=== PATIENT | female | born 1970 | race Caucasian/White ===

== ENCOUNTER 2024-11-28 14:09 | Observation (INO) | payer BC, MEDICARE ==
[~2024-11-28] VITALS: Ht 157.5 cm; Wt 95.1 kg
[~2024-11-28 14:09] MED LIST: ALPR1TAB7 PO; CHOL500050 PO; CLON2TAB21 PO; DULO60CA64 PO; IPRA3AMP24 IH; LAMO200T10 PO; NITR0.4T SL; OLAN1CAP14 PO; TEMA30CA PO
[2024-11-28 14:51] LABS: BASOPHILS # (AUTO) 0.06 K/uL (0.00-0.20); BASOPHILS % (AUTO) 0.5 % (0.0-5.0); EOSINOPHILS # (AUTO) 0.02 K/uL (0.00-0.70); EOSINOPHILS % (AUTO) 0.2 % (0.0-8.0); IMMATURE GRANULOCYTE ABSOLUTE 0.07 K/uL (0-1); LYMPHOCYTES # (AUTO) 2.9 K/uL (1.0-4.8); LYMPHOCYTES % (AUTO) 26.9 % (21.0-51.0); MEAN CORPUSCULAR HEMOGLOBIN 28.4 pg (27.0-33.0); MEAN CORPUSCULAR HGB CONC 32.9 g/dL (32.0-36.0); MEAN CORPUSCULAR VOLUME 86.2 fL (79-99); MONOCYTES # (AUTO) 0.7 K/uL (0.1-1.0); MONOCYTES % (AUTO) 5.9 % (3.0-13.0); NEUTROPHILS # (AUTO) 7.2 K/uL (1.8-7.7); NEUTROPHILS % (AUTO) 65.9 % (40.0-77.0); PLATELET COUNT (AUTO) 257 K/uL (130-400); RED BLOOD CELL COUNT(AUTO) 5.22 MIL/uL (4.00-5.50); RED CELL DISTRIBUTION WIDTH 13.3 % (11.0-15.5); WHITE BLOOD COUNT (AUTO) 10.9 K/uL (4.8-10.8)
[2024-11-28 15:03] LABS: CREATININE 1.1 mg/dL (0.5-1.0)
[2024-11-28 15:08] LABS: ALBUMIN 4.5 g/dL (3.5-5.0); BILIRUBIN,DIRECT 0.2 mg/dL (0.0-0.3); BILIRUBIN,TOTAL 0.7 mg/dL (0.2-1.0)
--- NOTE | 2024-11-28 15:16 | ERN ---
General Chief Complaint: Abdominal Pain Stated Complaint: SENT BY [facility] Time Seen by MD: 14:15 History of Present Illness Initial Comments 54-year-old female who presents for right upper quadrant pain and back pain. Patient reports for the last week or so she was had episodes of nausea and vomiting. She had a few episodes of loose stool. She has been having pain in the right upper quadrant that radiates through to the back. No chest pain or shortness of breath. She has been seen at multiple facilities without reso lution of symptoms. She went to [facility]'s office today and was evaluated by Shoshana Acosta, she was told to come here for imaging and further workup. On arrival here she was quite uncomfortable due to the pain, she was vomiting. Allergies: Coded Allergies: Gentamicin (Unverified Allergy, Unknown, 11/27/14) Iodinated Contrast Media - IV Dye (Unverified Allergy, Unknown, 11/27/14) Penicillins (Unverified Allergy, Unknown, 11/27/14) enoxaparin (Unverified Allergy, Unknown, 11/27/14) iodine (Unverified Allergy, Unknown, 11/27/14) latex (Unverified Allergy, Unknown, 11/27/14) Home Meds Reported Medications Trazodone HCl (Desyrel) 100 Mg Tab, 2 TAB PO HS 11/28/24 Zolpidem Tartrate (Ambien) 10 Mg Tablet, 10 MG PO HS 11/28/24 Discontinued Reported Medications Alprazolam (Alprazolam) 1 Mg Tablet, 1 MG PO HS, TAB 03/16/16 Ipratropium/Albuterol Sulfate (Iprat-Albut 0.5-3(2.5) mg/3 ml) 3 Ml Ampul.neb, 3 ML IH [id number] PRN for SHORTNESS OF BREATH 03/14/16 Nitroglycerin (Nitrostat) 0.4 Mg Tab.subl, 0.4 MG SL AD, TAB.SL 03/14/16 Lamotrigine (Lamotrigine) 200 Mg Tablet, 200 MG PO AM, TAB 03/14/16 Duloxetine HCl (Duloxetine HCl) 60 Mg Capsule.dr, 60 MG PO AM, CAP 03/14/16 Temazepam (Temazepam) 30 Mg Capsule, 30 MG PO HS, CAP 03/14/16 Cholecalciferol (Vitamin D3) (Vitamin D) 50,000 Unit Capsule, 37269 UNIT PO QWEEK, CAP 03/14/16 Clonazepam (Clonazepam) 2 Mg Tab.rapdis, 2 MG PO TID, TAB 03/14/16 Olanzapine/Fluoxetine HCl (Olanzapine-Fluoxetine 6-25 mg) 1 Each Capsule, 1 EACH PO HS, CAP 03/14/16 Past Medical History Past Medical History: Anxiety, Arthritis, Asthma, CAD, Depression, High C holesterol, Hypertension, Liver Disease, Pancreatitis, Seizure Past Surgical History: Hysterectomy, Tonsillectomy, Cholecystectomy, Other Surgical History Other: KNEE, ERCP, SPHINCTREOTOMY ROS Dictation CONSTITUTIONAL: No chills, no fever, no weakness, no diaphoresis, no malaise. HEAD/FACE: No signs of trauma. EENT: No eye pain, no blurred vision, no tearing, no double vision, no ear pain, no ear discharge, no nose pain, no nasal congestion, no throat pain, no throat swelling, no mouth pain. RESPIRATORY: No cough, no orthopnea, no SOB, no stridor, no wheezing. CARDIOVASCULAR: No chest pain, no edema, no palpitations, no syncope. GASTROINTESTINAL/ABDOMINAL: Right upper quadrant pain and vomiting GENITOURINARY: No abnormal discharge, no dysuria, no frequent urination, no hematuria. No complaints of pain in the genitals. MUSCULOSKELETAL: No back pain, no gout, no joint pain, no joint swelling, no muscle pain, no muscle stiffness, no neck pain. INTEGUMENTARY: No change in color, no change in hair/nails, no dryness, no lesion, no lumps, no rash. NEUROLOGICAL/PSYCH: No anxiety, not depressed, no emotional problem, no headache, no numbness, no pre-existing deficit, no history of seizures, no tremors, no weakness. HEMATOLOGIC/LYMPHATIC: Not anemic, no history of blood clots, no apparent bleeding, no bruising, glands not swollen. All Systems Negative, Except as Noted. Physical Exam Physical Exam Dictation VITAL SIGNS: Reviewed. GENERAL APPEARANCE: Alert, moderate distress due to pain EYES: PERRL, pink conjunctivas, eyelid no trauma, anterior chamber clear. EARS: Pinnas intact and no signs of trauma or erythema. Ear canals clear and no discharge. TMs no erythema. NOSE: No discharge, no bleeding. OROPHARYNX: Mouth normal, teeth no caries, tongue pink. Pharynx clear, no erythema. Tonsils no exudates, no abscesses noted. Mucous membrane moist. NECK: Supple, non-tender, no thyromegaly, no masses, no JVD, no bruits. BREAST: Deferred. CHEST: No tenderness, no crepitus, no paradoxical movement, no retractions. LUNGS: Clear, well-ventilated, symmetric, no rales, no wheezing, no rhonchi, no stridor, good breath sounds bilaterally. HEART: Regular rate, regular rhythm, no murmur, no gallops. VASCULAR: No peripheral edema. ABDOMEN: Soft, positive bowel sounds, nondistended, no guarding, nontender, no rebound, no masses no hepatomegaly, no splenomegaly, no Barker's sign, no hernias. RECTAL: Deferred. GENITAL: Deferred. NEUROLOGICAL: Normal speech, gross motor function intact, gross sensory function intact. MUSCULOSKELETAL: Neck nontender, full range of motion, back nontender, full range of motion. EXTREMITIES: Nontender, full range of motion. SKIN: Color pink, dry, no turgor, no rash, no lacerations, no abrasions, no contusions. LYMPHATICS: Deferred. Results Laboratory and Microbiology Lab and Micro Result MDM CC: Right upper quadrant pain Historian: Patient Comorbidities: Diabetes type 2, high cholesterol, hypertensionCommon pancreatitis, seizure disorder, dyslipidemia, liver disease Limitations by social determinants of health: None differential diagnosis: Pancreatitis, biliary pathology, gastritis, pulmonary pathology, other. Vital signs: Stable, remained Stable in the ER labs (independently interpreted by me ): No leukocytosis or anemia. Chemistry panel shows dehydration creatinine 1.1 BUN at 24 the bicarb of 15. Liver enzymes were stable. CK is stable. Lipase stable. Troponin stable CT abdomen and pelvis with contrast ( independently interpreted by me ): No acute abnormalities. treatment in the ED: 1 L lactated Ringer's, 1 mg IV Dilaudid. Patient was also treated for possible allergy to the contrast dye given diphenhydramine and methylprednisolone. Plan: We will admit for further evaluation and GI consultation Consultation: Dr Elliott hospitalist for admission ED Course DX & DISP Disposition: Inpatient Departure Impression: Primary Impression: Right upper quadrant pain Additional Impression: Intractable pain Condition: Stable Referrals: KIKO RIDER MD (PCP) LYSSA GREGORY DO Nov 28, 2024 15:16
[2024-11-28] MEDS: hydroMORPHone 1 MG INJ IVP ONE ×2 (15:25→18:04)
[2024-11-28] MEDS: Solu-medROL 40MG VIAL IVP ONE (15:26)
[2024-11-28] MEDS: DiphenhydrAMINE HCL 50 MG/ML VIAL IV ONE (15:26)
[2024-11-28] MEDS: LACTATED RINGERS 1000ML 1,000 ML IV ONE (15:36)
[2024-11-28] MEDS ORDERED: IOHEXOL-350 75 ML VIAL IV ONE (15:55)
--- NOTE | 2024-11-28 16:52 | HMCIMG ---
CT ABDOMEN/PELVIS W/CONTRAST HISTORY: Epigastric pain COMPARISON: 11/29/2019 TECHNIQUE: Multiple sequential axial images of the abdomen and pelvis were obtained from the dome of the diaphragm through symphysis pubis. Patient was not given contrast through intravenous route. Oral contrast was not given. FINDINGS: No pleural effusion is seen bilaterally. There is no evidence of parenchymal disease or pulmonary nodule of the visualized lower lungs. Degenerative changes of the thoracolumbar spine are present. The heart is not enlarged. Liver measures 19 cm. Post cholecystectomy changes are seen. There are fluid-filled small bowel loops and colon related to enterocolitis. Common duct is prominent measuring 14 mm. Liver, spleen, adrenal glands and pancreas are unremarkable. There is no evidence of hydronephrosis bilaterally. No evidence of renal stone is seen. Fecal material is seen in the colon. There are normal size retroperitoneal and mesenteric lymph nodes. No ascites is seen. Atherosclerotic changes are present. Pelvic sidewalls are symmetric bilaterally. The bladder is poorly distended. IMPRESSION: 1. Fluid-filled small bowel loops and colon related to enterocolitis. CT was performed with one or more following dose reduction techniques: automated exposure control, adjustment of the mA and kv according to patient's size, or use of a iterative reconstruction technique.
[2024-11-28] MEDS ORDERED: acetaMINOPHEN 325 MG TAB PO PRN (18:00)
[2024-11-28] MEDS ORDERED: ondanSETRON 4MG TABLET PO PRN (18:00)
--- NOTE | 2024-11-28 18:38 | CONS ---
GASTROENTEROLOGY CONSULTATION NOTE Date of Consultation: Nov 28, 2024 Time of Consultation: 18:38 History of Present Illness: This is a 54-year-old female who is known to services with past medical history of cholecystectomy who was seen in clinic due to severe abdominal pain in the right upper quadrant and nausea and vomiting. This is her third ER visit and again labs appear to be normal. Imaging revealing enterocolitis. No recent EGD. Review of Systems: CONSTITUTIONAL: No malaise or change in sensation of wellbeing. ENMT: No rhinorrhea, otorrhea, sinus pain, ear ache. CARDIOVASCULAR: No angina, palpitations, orthopnea or paroxysmal dyspnea. RESPIRATORY: No SOB. GASTROINTESTINAL: No abdominal pain, nausea, vomiting, diarrhea, hematemesis, melena or change in the patient's habitual bowel movements consistency/number. GENITOURINARY: No dysuria, hematuria or change in bladder continence. MUSCULOSKELETAL: No new muscle pain or decrease in muscular strength. No new joint swelling, redness or tenderness. SKIN: No new rash. Past Medical History: [ ] Past Surgical History: [ ] Past Social History: [ ] Family History: [ ] Coded Allergies: Gentamicin (Unverified Allergy, Unknown, 11/27/14) Iodinated Contrast Media - IV Dye (Unverified Allergy, Unknown, 11/27/14) Penicillins (Unverified Allergy, Unknown, 11/27/14) enoxaparin (Unverified Allergy, Unknown, 11/27/14) iodine (Unverified Allergy, Unknown, 11/27/14) latex (Unverified Allergy, Unknown, 11/27/14) Physical Exam: GEN: Awake, alert, oriented in person, time and place, and in no acute distress. HEENT: No sinus tenderness. Tympanic membranes were not examined. No rhinorrhea. Oral pharyngeal mucosa is pink, moist and within normal limits. Neck is supple with no cervical lymphadenopathy, thyromegaly or JVD. CHEST: Inspection, palpation and percussion of the chest were unremarkable. Lung auscultation revealed normal breath sounds bilaterally. CARDIAC: PMI is within normal limits. Heart sounds are regular. Normal S1, S2. No gallop or murmur. ABD: Soft, non-tender and not distended. No peritoneal signs on palpation. No organomegaly. Normal bowel sounds. EXT: No cyanosis or clubbing. No edema. SKIN: Intact. No rashes. JOINTS: No evidence of synovitis or acute arthritis. NEURO: Alert and oriented to name, place and person. Cranial nerve examination is unremarkable. No focal motor deficits. Normal speech. Gait is normal. Strength is normal. Vital Sign (Last 24 Hours) 11/28/24 11/28/24 15:30 18:21 Temp 98.2 Pulse 78 Resp 18 B/P (MAP) 137/81 Pulse Ox 99 O2 Delivery Room Air* O2 Flow Rate 0 FiO2 21 Laboratory: [ ] Laboratory: Test 11/28/24 14:46 Range/Units White Blood Count 10.9 H 4.8-10.8 K/uL Red Blood Count 5.22 4.00-5.50 MIL/uL Hemoglobin 14.8 12.0-16.0 g/dL Hematocrit 45.0 36-48 % Mean Corpuscular Volume 86.2 79-99 fL Mean Corpuscular Hemoglobin 28.4 27.0-33.0 pg Mean Corpuscular Hemoglobin Concent 32.9 32.0-36.0 g/dL Red Cell Distribution Width 13.3 11.0-15.5 % Platelet Count 257 130-400 K/uL Mean Platelet Volume 9.4 7.5-10.5 fL Immature Granulocyte % (Auto) 0.6 0-1 % Neutrophils (%) (Auto) 65.9 40.0-77.0 % Lymphocytes (%) (Auto) 26.9 21.0-51.0 % Monocytes (%) (Auto) 5.9 3.0-13.0 % Eosinophils (%) (Auto) 0.2 0.0-8.0 % Basophils (%) (Auto) 0.5 0.0-5.0 % Neutrophils # (Auto) 7.2 1.8-7.7 K/uL Lymphocytes # (Auto) 2.9 1.0-4.8 K/uL Monocytes # (Auto) 0.7 0.1-1.0 K/uL Eosinophils # (Auto) 0.02 0.00-0.70 K/uL Basophils # (Auto) 0.06 0.00-0.20 K/uL Absolute Immature Granulocyte (auto 0.07 0-1 K/uL Nucleated Red Blood Cells 0.0 0.0-0.19 % Sodium Level 136 136-145 mmol/L Potassium Level 4.0 3.5-5.1 mmol/L Chloride Level 99 L 101-111 mmol/L Carbon Dioxide Level 15 L 21-32 mmol/L Blood Urea Nitrogen 24 H 7-18 mg/dL Creatinine 1.1 H 0.5-1.0 mg/dL Glomerular Filtration Rate Calc 59 >90 mL/min Random Glucose 93 70-105 mg/dL Total Calcium 10.1 8.5-10.1 mg/dL Total Bilirubin 0.7 0.2-1.0 mg/dL Direct Bilirubin 0.2 0.0-0.3 mg/dL Aspartate Amino Transf (AST/SGOT) 20 10-37 U/L Alanine Aminotransferase (ALT/SGPT) 13 12-78 U/L Alkaline Phosphatase 122 50-136 U/L Total Creatine Kinase 117 # 21-232 U/L Troponin I High Sensitivity < 4 L 4-50 ng/L Total Protein 9.0 H 6.0-8.3 g/dL Albumin 4.5 3.5-5.0 g/dL Lipase 44 16-77 U/L Current Medications Medications (Trade) Dose Ordered Sig/Shagufta Route PRN Reason Start Time Stop Time Status Last Admin Dose Admin Acetaminophen (TYLenol 325MG TAB) 650 mg Q6H PRN PO MILD PAIN (1-3) 11/28/24 18:00 12/28/24 17:59 Dextrose/Sodium Chloride 1,000 ml @ 100 mls/hr Q10H IV 11/28/24 18:00 12/28/24 17:59 Morphine Sulfate (morPHINE 2MG SYG) 2 mg Q4H PRN IVP SEVERE PAIN (7-10) 11/28/24 18:00 12/05/24 17:59 Ondansetron HCl (zoFRAN 4MG TABLET) 4 mg Q6H PRN PO NAUSEA/VOMITING 11/28/24 18:00 12/28/24 17:59 Pantoprazole Sodium (PROTonix 40MG INJ) 40 mg DAILY IVP 11/29/24 09:00 12/29/24 08:59 Diagnostics / Radiology: [COPY/PASTE HERE IF NO REPORTS PLEASE DELETE SECTION] Assessment: Upper abdominal pain N/V Plan: EGD in am Continue GI prophylaxis Advance diet as tolerated Avoid NSAIDs Antireflux measures Monitor H&H and transfuse as needed Call with questions, concerns or change in clinical status Patient to follow-up at clinic post discharge Thank you for this consult OLESYA MCCALL [facility] Nov 28, 2024 18:38
[2024-11-28 19:01] LABS: APPEARANCE,URINE CLOUDY (CLEAR); BILIRUBIN,URINE 0.5 mg/dL (NEGATIVE); COLOR,URINE YELLOW (YELLOW); GLUCOSE, URINE (UA) NEGATIVE (NEGATIVE); KETONES,URINE 100 mg/dL (NEGATIVE); LEUKOCYTE ESTERASE ,URINE 500 Leu/uL (NEGATIVE); NITRATE,URINE NEGATIVE (NEGATIVE); OCCULT BLOOD,URINE LARGE (NEGATIVE); PROTEIN,URINE 300 mg/dL (NEGATIVE); UROBILINOGEN,URINE 3 mg/dL (0.2-1.0)
[2024-11-28 19:12] LABS: BACTERIA,URINE RARE /HPF (None Seen); MUCUS,URINE FEW LPF (None Seen); NON-SQUAMOUS EPITHELIAL CELL 4 /HPF (0-2); RBC,URINE 26-50 /HPF (0-1); SQUAMOUS EPITHELIAL CELL,UR FEW /HPF (0-2); WBC,URINE 26-50 /HPF (0-1); YEAST,URINE BUDDING RARE /HPF (None Seen); YEAST,URINE HYPHAE RARE /HPF (None Seen)
[2024-11-28] MEDS: DEXTROSE 5 % AND 0.9 % NACL 1,000 ML IV SCH (19:39)
[2024-11-28 22:00] VITALS: BP 139/85; PULSE 65; RESP 22; TEMP 98.2
--- NOTE | 2024-11-28 22:00 | NUR ---
admit note admit to room 427 via stretcher from er, patient awake, alert, ox3, c/o pain ruq , see pain assessment and treatment, no family a bedside, home medications listed, teach patient plan of care, pain management, npo and expected outcome, patient verbalizes understanding via teach back
[2024-11-28] MEDS ORDERED: ZOLP-685 PO (22:11)
[2024-11-28] MEDS ORDERED: TRAZ-258 PO (22:11)
[2024-11-28] MEDS: morPHINE 2 MG SYG IVP PRN (22:27)
[2024-11-28 23:30] VITALS: BP 116/66; PULSE 80
[2024-11-29] VITALS (18 sets, daily range): BP systolic 92–128; BP diastolic 58–80; PULSE 59–80; RESP 16–20; TEMP 97.1–98.3; O2SAT 98
[2024-11-29 05:59] LABS: BASOPHILS # (AUTO) 0.02 K/uL (0.00-0.20); BASOPHILS % (AUTO) 0.2 % (0.0-5.0); EOSINOPHILS # (AUTO) 0.01 K/uL (0.00-0.70); EOSINOPHILS % (AUTO) 0.1 % (0.0-8.0); HEMATOCRIT 39.1 % (36-48); IMMATURE GRANULOCYTE ABSOLUTE 0.03 K/uL (0-1); LYMPHOCYTES # (AUTO) 1.6 K/uL (1.0-4.8); LYMPHOCYTES % (AUTO) 18.4 % (21.0-51.0); MEAN CORPUSCULAR HEMOGLOBIN 28.6 pg (27.0-33.0); MEAN CORPUSCULAR VOLUME 89.5 fL (79-99); MONOCYTES # (AUTO) 0.4 K/uL (0.1-1.0); MONOCYTES % (AUTO) 4.3 % (3.0-13.0); NEUTROPHILS # (AUTO) 6.6 K/uL (1.8-7.7); NEUTROPHILS % (AUTO) 76.7 % (40.0-77.0); PLATELET COUNT (AUTO) 223 K/uL (130-400); RED BLOOD CELL COUNT(AUTO) 4.37 MIL/uL (4.00-5.50); RED CELL DISTRIBUTION WIDTH 13.2 % (11.0-15.5); WHITE BLOOD COUNT (AUTO) 8.6 K/uL (4.8-10.8)
[2024-11-29 06:20] LABS: ALBUMIN 3.5 g/dL (3.5-5.0); BILIRUBIN,TOTAL 0.4 mg/dL (0.2-1.0); CREATININE 0.7 mg/dL (0.5-1.0); MAGNESIUM 2.2 mg/dL (1.80-2.40); POTASSIUM 3.8 mmol/L (3.5-5.1); TOTAL PROTEIN, SERUM 7.2 g/dL (6.0-8.3)
[2024-11-29] MEDS: PANTOPrazole 40 MG/VIAL IVP SCH (08:38)
[2024-11-29] MEDS ORDERED: LIDOCAINE HCL 1% 20 ML VIAL ONE (11:09)
[2024-11-29] MEDS ORDERED: proPOFol 10 MG/ML 20ML VIAL IV ONE (11:09)
[2024-11-29] MEDS ORDERED: phenylEPHRINE HCL 10 MG/ML 1ML VIAL IV ONE (11:32)
[2024-11-29] MEDS: levoFLOXacin 500 MG/D5W 100 ML 100 ML IV SCH (14:22)
--- NOTE | 2024-11-29 20:06 | DS ---
DATE OF DISCHARGE: 11/29/2024 DISCHARGE SUMMARY PRESENTING COMPLAINT: Abdominal pain, nausea and vomiting. HOSPITAL COURSE: A 54-year-old female with history of pancreatitis, obesity, anxiety disorder, presented to the Emergency Room from [facility] with abdominal pain, nausea and vomiting. The patient was admitted as a case of possible gastritis. EGD was done, which showed the patient to have gastric edema with gastritis. The patient was also found with UTI and was treated with antibiotic. The patient has no fever, no chills. Tolerating orally. The patient is cleared for discharge. FINAL DISCHARGE DIAGNOSES: * Gastritis. * Abdominal pain. * Urinary tract infection. * Obesity. PLAN: * The patient to be discharged home. * Continue Protonix. * The patient will be given levofloxacin. * Follow up with Gastroenterology. * Follow up with primary care physician. TID: [id number] RECEIPT: [id number] MTDD
--- NOTE | 2024-11-29 20:44 | PN ---
INFECTIOUS DISEASE FOLLOWUP NOTE DATE OF SERVICE: 11/29/2024. SUBJECTIVE: The patient is seen and examined at bedside. No fever or chills. EGD has been done, which shows gastritis. The patient is tolerating antibiotic. Epigastric pain is better. No rashes or itchiness. PHYSICAL EXAMINATION: VITAL SIGNS: Temperature 98.3. EYES: No icterus. Pupils equal and reactive. HENT: No oral thrush seen. Moist oral mucosa. NECK: Supple. No JVD or thyromegaly. LUNGS: Good air entry. No rales, no rhonchi. CARDIOVASCULAR SYSTEM: S1, S2 regular. No murmur heard. ABDOMEN: Obese, soft. Bowel sound is present. Mild tenderness in epigastric area. CENTRAL NERVOUS SYSTEM: Awake, alert, oriented x 3. No focal deficits. SKIN: No rashes, no itchiness. LYMPHATIC: No peripheral lymphadenopathy. BACK: No deformity, no pressure ulcer. ASSESSMENT: A 54-year-old female who presented with epigastric pain, nausea, and vomiting. CURRENT PROBLEMS: Include: * Gastritis. * UTI. * Abdominal pain. * Anxiety disorder. * Obesity. PLAN: * Follow up cultures. * Continue Protonix. * Continue nutritional support. * Continue antiemetic. * Continue pain management. * Monitor electrolytes and correct as needed. TID: [id number] RECEIPT: [id number]
--- NOTE | 2024-12-01 00:24 | HP ---
DATE OF ADMISSION: 11/28/2024 PRESENTING COMPLAINT: Nausea, vomiting and abdominal pain. HISTORY OF PRESENT ILLNESS: A 54-year-old female with history of pancreatitis, anxiety disorder, obesity, who was sent to the Emergency Room for further evaluation. The patient had gone to [facility] Clinic with the above complaints. The patient was sent to the hospital for admission for further care. Lab done in the Emergency Room came back normal. CT of the abdomen was done, which showed fluid-filled colon with possible enterocolitis. The patient denies diarrhea. The patient's pain is localized to the epigastric region. No chest pain, no palpitation or orthopnea. Denies fever or chills. The patient's lipase and amylase came back normal. PAST MEDICAL HISTORY: * Pancreatitis. * Obesity. * Anxiety disorder. * Dyslipidemia. * Hypertension. * Seizure disorder. PAST SURGICAL HISTORY: * ERCP. * Knee surgery. * Cholecystectomy. * Hysterectomy. ALLERGIES: * VANCOMYCIN. * CEFTRIAXONE. * LOVENOX. * PENICILLIN. SOCIAL HISTORY: Denies alcohol, tobacco or illicit drug use. FAMILY HISTORY: Noncontributory. REVIEW OF SYSTEMS: CONSTITUTIONAL: No fever or chills. No weight loss or night sweats. EYES: No eye pain. No photophobia or diplopia. HENT: No sore throat. No rhinorrhea or earache. NECK: No neck pain or neck swelling. RESPIRATORY: No cough. No hemoptysis or pleuritic pain. CARDIOVASCULAR: No chest pain. No palpitation or orthopnea. GASTROINTESTINAL: Positive for nausea, vomiting and epigastric pain. No diarrhea. GENITOURINARY: Positive for dysuria. No hematuria or urinary frequency. CENTRAL NERVOUS SYSTEM: No headache, dizziness or slurred speech. PSYCHIATRY: No depression. No suicidal ideation. MUSCULOSKELETAL: No joint pain or joint swelling. PHYSICAL EXAMINATION: GENERAL: Young female, awake. VITAL SIGNS: Temperature 98.1, pulse 69, respirations 16, BP 106/64. EYES: No icterus. Pupils equal and reactive. HENT: No oral thrush seen. Moist oral mucosa. NECK: Supple. No JVD or thyromegaly. LUNGS: Good air entry. No rales. No rhonchi. CARDIOVASCULAR: S1, S2 regular. No murmur heard. ABDOMEN: Obese, soft. Bowel sound is present. Mild tenderness to the epigastric area. CENTRAL NERVOUS SYSTEM: Awake, alert, oriented x 3. No focal deficits. SKIN: No rashes. No itchiness. LYMPHATIC: No peripheral lymphadenopathy. BACK: No deformity. No pressure ulcer. LABORATORY DATA: Sodium 136, potassium 4.0. BUN 24, creatinine 1.1. WBC 10.9, hemoglobin 14.8, platelet 257. Urinalysis: WBC 25-50 and leukocyte esterase 500. RADIOLOGY: CT of the abdomen results reviewed. ASSESSMENT: A 54-year-old male presenting with nausea, vomiting and epigastric pain. Current problems include: * Possible gastritis. * Urinary tract infection. * Abdominal pain. * Obesity. * Anxiety disorder. PLAN: * The patient admitted to medical floor. * The patient will be placed on clear liquid diet. * The patient will be placed on IV Protonix. * Gastroenterology evaluation. * Start the patient on levofloxacin. * Morphine as needed for pain. * Zofran as needed for nausea and vomiting. * Monitor electrolytes and correct as needed. TID: [id number] RECEIPT: [id number]
== END 2024-11-29 19:00 | disposition home or self-care (01) ==
LOC: EDH 14:09 → EDHIP 14:10 → 4DH 21:50
PROVIDERS: ADMIT Internal Medicine Infectious Disease; ATTEND Internal Medicine Infectious Disease
DX: K29.70 Gastritis, unspecified, without bleeding (principal); N39.0 Urinary tract infection, site not specified; F41.9 Anxiety disorder, unspecified; R10.13 Epigastric pain; E66.9 Obesity, unspecified; E78.00 Pure hypercholesterolemia, unspecified; I10 Essential (primary) hypertension; I25.10 Atherosclerotic heart disease of native coronary artery without angina pectoris; G40.909 Epilepsy, unspecified, not intractable, without status epilepticus; J45.909 Unspecified asthma, uncomplicated; Z90.49 Acquired absence of other specified parts of digestive tract; Z90.710 Acquired absence of both cervix and uterus; Z98.890 Other specified postprocedural states; Z79.899 Other long term (current) drug therapy; Z88.0 Allergy status to penicillin; Z91.041 Radiographic dye allergy status; Z91.040 Latex allergy status; Z88.6 Allergy status to analgesic agent; Z68.38 Body mass index [BMI] 38.0-38.9, adult
CPT/HCPCS: 96376; 96361 ×2; 96375 ×2; 99284; 82550; 80076; 84484; 80048; 83690; 85025 ×2; 87086; 81001; 36415 ×2; 74177; 96365; 83735; 80053; 82948 ×2; 88305; 88312; 43239; G0378 ×22; J7042; J1200; J1171 ×2; J2270; J2919; Q9967; J1956; J2704; J2470; J2371; A4620; A4215; A4223; A4222; J7030; A4606; J3490